=== PATIENT | female | born 1945 | race Caucasian/White ===

== ENCOUNTER 2016-09-19 13:42 | Day surgery (SDC) | payer MEDICARE, OTHER ==
[~2016-09-19] VITALS: Ht 157.5 cm; Wt 44.8 kg
[~2016-09-19 13:42] MED LIST: CALC-761 PO; HYDR25TA4 PO; Lactated Ringer's 1,000 ML IV ONE; Levofloxacin 500 mg/100 mL D5W IV ONE; MULT-1065 PO; POTASSIUM PHOS PO; TAMS0.4C98 PO
[2016-09-19] MEDS ORDERED: Propofol 10,000 mCg/mL 20 mL Inj ONE (13:43)
[2016-09-19] MEDS ORDERED: Ondansetron 2 mg/mL 2 mL Inj ONE (13:43)
[2016-09-19] MEDS ORDERED: fentaNYL-PF 50 mCg/mL 2 mL Inj ONE (13:43)
[2016-09-19 13:50] VITALS: BP 153/76; PULSE 80; RESP 16; O2SAT 98
[2016-09-19] MEDS ORDERED: Lactated Ringer's 1,000 ML IV ONE (13:50)
[2016-09-19] MEDS ORDERED: levoFLOXacin 500 mg/100 mL D5W Premix IV ONE (14:04)
[2016-09-19] MEDS ORDERED: NO HOME MEDICATIONS (14:26)
[2016-09-19] MEDS ORDERED: Iopamidol-300 50 mL Inj IV ONE (14:30)
[2016-09-19] MEDS ORDERED: Lactated Ringer's 500 ML IV PRN (14:44)
[2016-09-19] MEDS ORDERED: Lactated Ringer's 1,000 ML IV SCH (14:44)
--- NOTE | 2016-09-19 14:44 | PCM.HPANE ---
Patient Data Surgeon Admitting Provider: Attending Provider:Dunia Burnham MD Primary Care Physician:Neville Ocampo MD Other Provider:[facility] Reason for Visit Right Ureteral Stone Ht/WT & BMI Height (Feet): 5 Height (Inches): 2 Weight (Kilograms): 44.54 Body Mass Index 18.00 Allergies Coded Allergies: Penicillins (Verified Allergy, Severe, RASH, 09/19/16) Past Anesthesia History Anesthesia History: Denies:: Anesthesia Reactions, Malignant Hyperthermia Diabetes History Hx Diabetes?: No MRSA MRSA: No Medications Hypertension Medication: Yes (HCTZ) Reported Medications [No Home Medications] No Conflict Check 09/19/16 Discontinued Reported Medications [Potassium Phos #2] No Conflict Check1 Tab PO DAILY 305-700 09/14/16 Hydrochlorothiazide 25 Mg [id number] Mg PO DAILY 30 Days Ref 0 09/14/16 Calcium Citrate/Vitamin D3 (Citracal + D Maximum Caplet)1 Each Tablet1 Each PO DAILY 09/14/16 Multivits-Min/Iron/FA/Lutein (Centrum Silver Women Tablet)8 Mg Iron-400 Mcg-300 Mcg Tablet1 Each PO DAILY 09/14/16 Tamsulosin (Flomax)0.4 Mg Capsule0.4 Mg PO DAILY Ref 0 09/14/16 History History of ENT Problems?: No HEENT History: Denies:: Abnormal Airway Cataracts Difficult Intubation Dysphagia Glaucoma Hearing Problem Sinus Problem TMJ Denture Type: None Teeth Condition: Within Normal Limits Hx of Heart Problems?: Yes Cardiovascular History: Positive for:: Hypertension Denies:: Heart Murmur Hx of Respiratory Problem?: No Respiratory History: Denies:: Use of C-PAP Machine Hx Neurologic Problems?: No Hx of GI Problems?: Yes Other GI Pertinent History: C/OF ABD PAIN R/T KIDNEY STONE HX BOWEL OBSTRUCTION Hx of Problems?: Yes Genitourinary History: Positive for:: Kidney Stones (RT URETERAL STONE= CURRENT PROBLEM C/OF RT FLANK PAIN) Other Pertinent History: S/P CYSTO, RETROGRADE PYELOGRAM Female Hx: Denies:: Currently Skin History: Denies:: History Skin Disorders? Pressure Ulcers Hx Musculoskeletal Problems?: Yes Musculoskeletal History: Positive for:: Musculoskeletal Trauma (S/P WRIST RPR' S) Hx of Psycho/Social Problems?: No Hx Surgeries?: Yes (CYSTO/RETROGRADE,WRIST RPR'S,HYST) Hx Any Other Health Problems?: Yes Other History: Denies:: Cancer Endocrine Disease Hospitalization Thyroid Disease Hx Diabetes: No Have You Smoked inLast 12 mo: No Stop/Bang S-Snoring: Do You Snore Loudly: No T-Tired: feel tired, fatigued: Yes O-Obsered: Observed not breath: No P-Blood Pressure: treated: Yes B- Body Mass Index > 35 kg/m2: No A- Age over 50: Yes N- Neck Large Circumference: No G- Gender Male: No FLIP Total Score: 3 Risk Assessment Category Category 1A: Patient has history of documented sleep apnea, and HAS NOT received any narcotic, sedative or anesthesia administration during this stay. Category 1B: Patient has history of documented sleep apnea, and HAS received any narcotic , sedative or anesthesia administration during this stay Category 2: Patient has SUSPECTED Obstructive Sleep Apnea, and HAS received any narcotic , sedative or anesthesia administration during this stay. Category 3: Patient has SUSPECTED Obstructive Sleep Apnea and HAS NOT received narcotic, sedative or anesthesia administration during this stay. Category 4: Outpatient in Procedural Areas with known sleep apnea or who screen positive for High Risk via the STOP/BANG questionnaire. Exam Exam General Appearance: Alert, Oriented X3, Cooperative, No Acute Distress HEENT/AIRWAY: MP 2 Lungs: Clear to Auscultation Heart: Exam Unremarkable Plan Impression Patient chart reviewed, patient interviewed and anesthestic plan with risks, benefits, and alternatives discussed, and informed consent obtained. ASA Physical Status: ASA1 Normal Healthy Anesthetic Plan: GA Bene/Risks/Altern/Consents: Yes HP Complete Prior to Induction: Yes Rajendra Cordova MD Sep 19, 2016 07:50
[2016-09-19] MEDS ORDERED: Dexamethasone 4 mg/mL Inj IVPUSH PRN (14:45)
[2016-09-19] MEDS ORDERED: MetoCLOpramide 5 mg/mL 2 mL Inj IVPUSH PRN (14:45)
[2016-09-19] MEDS ORDERED: Ondansetron 2 mg/mL 2 mL Inj IVPUSH PRN (14:45)
[2016-09-19] MEDS ORDERED: fentaNYL-PF 50 mCg/mL 2 mL Inj IVPUSH PRN (14:45)
[2016-09-19] MEDS ORDERED: EPHEDrine Sulfate 50 mg/mL Inj IVPUSH PRN (14:45)
[2016-09-19] MEDS ORDERED: Phenylephrine 10,000 mCg/mL Inj IVPUSH PRN (14:45)
[2016-09-19] MEDS ORDERED: HYDROmorphone 1 mg/mL Inj IVPUSH PRN (14:45)
[2016-09-19 15:02] VITALS: BP 144/94; PULSE 76; RESP 11; O2SAT 98
[2016-09-19 15:05] VITALS: BP 142/80; PULSE 70; RESP 12; O2SAT 98
[2016-09-19 15:10] VITALS: BP 140/80; PULSE 68; RESP 12; O2SAT 98
[2016-09-19] MEDS ORDERED: HYDROcodone-APAP 5-325 mg Tablet PO PRN (15:15)
[2016-09-19 15:25] VITALS: BP 150/87; PULSE 75; RESP 15; O2SAT 98
[2016-09-19 16:32] VITALS: BP 156/75; PULSE 88; RESP 16; O2SAT 100
--- NOTE | 2016-09-19 16:37 | DRSVH ---
PROCEDURE: X-RAY RETROGRADE UROGRAPHY INDICATIONS: CYSTO RIGHT STENT PLACEMENT TECHNIQUE: 2 intra-operative images acquired by the Urology service. COMPARISON: None. FINDINGS: Intraoperative images demonstrate apparent right hydronephrosis and hydroureter with urete rovesicular stent placement. IMPRESSION: Ureterovesicular stent placement. Please see operative report for further evaluation. Dictated by: Karen Mcgill M.D. on 09/19/2016 at 16:35 Approved by: Karen Mcgill M.D. on 09/19/2016 at 16:35
--- NOTE | 2016-09-20 01:14 | OP ---
[address] [address] OPERATIVE REPORT PATIENT: ISIS ORTA : 1945 MR#: [id number] ADMIT: 09/19/2016 JOB ID: [id number] CORRECTED REPORT: DATE OF SURGERY: 09/19/2016 PREOPERATIVE DIAGNOSIS(ES): Right urolithiasis. POSTOPERATIVE DIAGNOSIS(ES): Right urolithiasis. PROCEDURE PERFORMED: 1. Cystoscopy. 2. Right retrograde pyelogram. 3. Right ureteroscopy. 4. Right ureteral stent placement. SURGEON: Dunia Burnham MD [employer]: None. FINDINGS: 1. Somewhat tortuous right ureter. 2. Mild hydronephrosis. ANESTHESIA: General. ESTIMATED BLOOD LOSS: Less than 2 mL. DRAINS: 6 x 22 right double-J ureteral stent. SPECIMENS: None. COMPLICATIONS: None. CONDITION: Stable. INDICATION FOR PROCEDURE: The patient is a 71-year-old woman with a right proximal ureteral stone as well as several tiny punctate nephroliths. She now presents for the aforementioned procedure. DESCRIPTION OF PROCEDURE: After informed consent was obtained, the patient was taken to the operating room. A time-out was performed, identifying correct patient, surgical site, procedure. General anesthesia was then induced. She was placed in the lithotomy position and all pressure points were identified and appropriately padded. Her genitals were then prepped and draped in usual sterile fashion. A 22-Z[place]ian rigid cystoscope was applied to the patient's urethra and advanced into the bladder. The bladder was drained. The right ureteral orifice was cannulated with a 5-Z[place]ian open-ended Pollack catheter. The findings were aforementioned. Two Sensor tip wires were then advanced in the renal pelvis in succession as seen under fluoroscopy. Semi-rigid ureteroscopy then commenced. The ureteroscope could not be advanced beyond the distal aspect of the ureter. The ureteroscope was then removed under direct vision. One of the Sensor tip wires was backloaded into a 12/14 access sheath, 28 cm long. It could not be navigated any further than the distal ureter. The access sheath was removed and the remaining wire then backloaded in the cystoscope and a 6 x 22 double-J ureteral stent was loaded over it and into the renal pelvis as seen under fluoroscopy. The wire then removed, leaving a nice coil in the patient's bladder as seen under direct vision. The bladder was then drained. The patient was then reversed from general anesthesia and taken to PACU in good and stable condition. Corrected by CY 09/27/16 at 11:47am DOS.
== END 2016-09-19 23:59 | disposition home or self-care (01) ==
LOC: SAS 13:42 → EDSEX 15:15 → SAS 23:59
PROVIDERS: ATTEND Urology
DX: N20.1 Calculus of ureter (principal); I10 Essential (primary) hypertension; Z90.710 Acquired absence of both cervix and uterus
CPT/HCPCS: 52332; 74420; C2617; J1885; J2250; J2405; J3010; J7120; Q9967

== ENCOUNTER → 2016-10-05 | Day surgery (SDC) | payer MEDICARE, OTHER ==
[~2016-10-05] VITALS: Ht 157.5 cm; Wt 44.1 kg
[2016-10-05] VITALS (9 sets, daily range): BP systolic 113–159; BP diastolic 63–83; PULSE 67–84; RESP 14–18; O2SAT 99–100
[~2016-10-05] MED LIST changes: +0.9% Sodium Chloride 200 ML ONE; +Bupivacaine Liposome 1.3% 20 mL Inj ONE; -CALC-761 PO; +Dexamethasone 4 mg/mL Inj IVPUSH PRN; +Dexamethasone 4 mg/mL Inj ONE; +EPHEDrine Sulfate 50 mg/mL Inj IVPUSH PRN; -HYDR25TA4 PO; +HYDROcodone-APAP 5-325 mg Tablet PO PRN; +HYDROmorphone 1 mg/mL Inj IVPUSH PRN; +Iopamidol-300 50 mL Inj IV ONE; -Lactated Ringer's 1,000 ML IV ONE; +Lactated Ringer's 1,000 ML IV SCH; +Lactated Ringer's 500 ML IV PRN; -MULT-1065 PO; +MetoCLOpramide 5 mg/mL 2 mL Inj IVPUSH PRN; +MetoCLOpramide 5 mg/mL 2 mL Inj ONE; +NO HOME MEDICATIONS; +Ondansetron 2 mg/mL 2 mL Inj IVPUSH PRN; +Ondansetron 2 mg/mL 2 mL Inj ONE; -POTASSIUM PHOS PO; +Phenylephrine 10,000 mCg/mL Inj IVPUSH PRN; +Propofol 10,000 mCg/mL 20 mL Inj ONE; -TAMS0.4C98 PO; +Tranexamic Acid 100 mg/mL 10 mL Inj ONE; +fentaNYL-PF 50 mCg/mL 2 mL Inj IVPUSH PRN; +levoFLOXacin 500 mg/100 mL D5W Premix IV ONE
[2016-10-05] MEDS: Lactated Ringer's 1,000 ML IV SCH ×2 (11:35→12:12)
--- NOTE | 2016-10-05 11:57 | PCM.HPANE ---
Patient Data Surgeon Admitting Provider: Attending Provider:Dunia Burnham MD Primary Care Physician:Neville Ocampo MD Other Provider:[facility] Reason for Visit Right Ureteral Stone Ht/WT & BMI Height (Feet): 5 Height (Inches): 2.00 Weight (Kilograms): 44.100 Body Mass Index 17.00 Allergies Coded Allergies: Penicillins (Verified Allergy, Severe, RASH, 09/29/16) Past Anesthesia History Anesthesia History: Denies:: Abnormal Airway, Anesthesia Reactions, Difficult Intubation, Fam Anesthesia Reaction, Fam Malignant Hypertherm, Malignant Hyperthermia Diabetes History Hx Diabetes?: No MRSA MRSA: No Medications Home Meds Incl Beta Vivian: No Reported Medications [No Home Medications] No Conflict Check 09/19/16 History History of ENT Problems?: No HEENT History: Denies:: Abnormal Airway Cataracts Difficult Intubation Dysphagia Glaucoma Hearing Problem Sinus Problem TMJ Denture Type: None Teeth Condition: Within Normal Limits Hx of Heart Problems?: Yes Cardiovascular History: Denies:: Heart Murmur Hypertension Hx of Respiratory Problem?: No Respiratory History: Denies:: Use of C-PAP Machine Hx Neurologic Problems?: No Hx of GI Problems?: No Hx of Problems?: Yes Genitourinary History: Positive for:: Kidney Stones (RT URETERAL STONE= CURRENT PROBLEM C/OF RT FLANK PAIN) Denies:: HX of Hemodialysis Urinary Tract Infection HX of Peritoneal Dialysis: No Female Hx: Positive for:: Problems with Breasts? Denies:: Currently Skin History: Denies:: History Skin Disorders? Pressure Ulcers Hx Musculoskeletal Problems?: Yes Musculoskeletal History: Positive for:: Musculoskeletal Trauma (S/P Carpal tunnel bilateral RPR'S) Denies:: Back Injury Degenerative Joint Fibromyalgia Joint Replacement Myasthenia Gravis Osteoarthritis Rheumatoid Arthritis Systemic Lupus Hx of Psycho/Social Problems?: No Hx Surgeries?: Yes (CYSTO/RETROGRADE,WRIST RPR'S,HYST) Hx Any Other Health Problems?: Yes Other History: Positive for:: Hospitalization Denies:: Cancer Endocrine Disease Thyroid Disease History Blood Transfusions: Positive for:: Accept Blood Products? Denies:: Blood Transfusions Hx Diabetes: No Hx Alcohol Use: Yes (2-3 glasses of wine a week)Hx Substance Use: No Smoking Status: Never Smoker Have You Smoked inLast 12 mo: No Stop/Bang Treated for Sleep Apnea?: No Do You Have a CPAP Machine?: No S-Snoring: Do You Snore Loudly: No T-Tired: feel tired, fatigued: No O-Obsered: Observed not breath: No P-Blood Pressure: treated: No B- Body Mass Index > 35 kg/m2: No A- Age over 50: Yes N- Neck Large Circumference: No G- Gender Male: No FLIP Total Score: 1 FLIP Risk Assessment: Low Risk, <3 Yes Risk Assessment Category Category 1A: Patient has history of documented sleep apnea, and HAS NOT received any narcotic, sedative or anesthesia administration during this stay. Category 1B: Patient has history of documented sleep apnea, and HAS received any narcotic , sedative or anesthesia administration during this stay Category 2: Patient has SUSPECTED Obstructive Sleep Apnea, and HAS received any narcotic , sedative or anesthesia administration during this stay. Category 3: Patient has SUSPECTED Obstructive Sleep Apnea and HAS NOT received narcotic, sedative or anesthesia administration during this stay. Category 4: Outpatient in Procedural Areas with known sleep apnea or who screen positive for High Risk via the STOP/BANG questionnaire. Exam Exam Vital Signs Vital Signs Date Time Temp Pulse Resp B/P Pulse Ox O2 Delivery O2 Flow Rate FiO2 10/05/16 11:11 36.7 80 18 159/83 100 Room Air General Appearance: Oriented X3 HEENT/AIRWAY: MP 1 Lungs: Normal Air Movement Heart: Regular Rate/Rhythm Meds/Labs/Diagnostics Admission Meds Current Medications Lactated Ringer's (Lr) 1,000 ml @ 120 mls/hr [id number] IV Last administered on t 11:35; Start 10/05/16 at 05:00; Stop 10/05/16 at 13:19 Plan Impression Patient chart reviewed, patient interviewed and anesthestic plan with risks, benefits, and alternatives discussed, and informed consent obtained. ASA Physical Status: ASA1 Normal Healthy Anesthetic Plan: GA Bene/Risks/Altern/Consents: Yes HP Complete Prior to Induction: Yes Aries Cheung MD Oct 05, 2016 11:57
--- NOTE | 2016-10-05 13:57 | DRSVH ---
PROCEDURE: X-RAY RETROGRADE UROGRAPHY INDICATIONS: C-ARM ASSISTED STONE REMOVAL TECHNIQUE: 3 intra-operative images acquired by the Urology service. COMPARISON: [facility], CR, XR RETROGRADE UROGRAPHY, 09/19/2016, 14:51. FINDINGS: Exam limited to 3 submitted images. Within these limits, opacified portions of the distal right ureter demonstrates several small intraluminal filling defects likely related to retained ston es in the ureter is tortuous at the level of the mid pelvis. Ureteral stent was placed. IMPRESSION: Limited exam demonstrates several right ureteral intraluminal filling defect suspicious for retained stones. Correlate with real time examination. Ureteral stent placed. Dictated by: Alec MONTES Interpreted: Daniele Woodson MD on 10/05/2016 at 13:54 Transcribed by: DAIJA on 10/05/2016 at 13:55 Approved by: Daniele Woodson M.D. on 10/05/2016 at 15:34
--- NOTE | 2016-10-05 13:57 | PCM.ANEP1 ---
Post Anesthesia PACU Phase 1 Assessment Vital Signs Vital Signs Date Time Temp Pulse Resp B/P Pulse Ox O2 Delivery O2 Flow Rate FiO2 10/05/16 13:46 70 16 140/83 100 Room Air 10/05/16 13:40 36.4 71 14 123/79 100 Room Air 10/05/16 13:35 70 14 129/70 100 Room Air 10/05/16 13:30 70 15 127/75 100 Room Air 10/05/16 13:25 67 14 127/71 100 Simple Mask 8 10/05/16 13:20 75 16 113/68 99 Simple Mask 8 10/05/16 13:18 36.5 75 16 119/63 99 Simple Mask 8 10/05/16 11:11 36.7 80 18 159/83 100 Room Air Anesthetic Administered: GA Level of Alertness: Awake, talking Pain: No Nausea or Vomiting: No CV Function & Hydration Stable: Yes Airway Device: Lungs: Normal Air Movement PACU Phase 2 Assessment Patient Instructions Provided: N/A Aries Cheung MD Oct 05, 2016 13:57
--- NOTE | 2016-10-05 14:30 | OP ---
[address] [address] OPERATIVE REPORT PATIENT: ISIS ORTA : 1945 MR#: [id number] ADMIT: 10/05/2016 JOB ID: [id number] DATE OF SURGERY: 10/05/2016 PREOPERATIVE DIAGNOSIS(ES): 1. Right urolithiasis. 2. Right ureterolithiasis. 3. Right ureteral narrowing. POSTOPERATIVE DIAGNOSIS(ES): PROCEDURE PERFORMED: 1. Cystoscopy and right stent removal. 2. Right retrograde pyelogram. 3. Right ureteral dilation. 4. Right ureteroscopy and laser lithotripsy. 5. Right ureteral stent placement. SURGEON: Dunia Burnham MD [employer]: None. FINDINGS: 1. Narrowing of the distal right ureter. 2. Right proximal ureteral stone. 3. Mild right hydronephrosis. ANESTHESIA: General. ESTIMATED BLOOD LOSS: Less than 5 mL. DRAINS: A 6 x 22 right double-J ureteral stent. SPECIMENS: None. COMPLICATIONS: None. CONDITION: Stable. INDICATION FOR PROCEDURE: The patient is a 71-year-old woman with a right ureteral stone. She had undergone right ureteral stent placement on September 19, 2016. She now presents for definitive management of her stone. DESCRIPTION OF PROCEDURE: After informed consent was obtained, the patient was taken to the operating room. A time-out was performed identifying correct patient, surgical site, and procedure. General anesthesia was smoothly induced. She was placed in the lithotomy position and all pressure points were identified and appropriately padded. Her genitals were then prepped and draped in the usual sterile fashion. A 22-[place] rigid cystoscope was applied to the patient's urethra and advanced into the bladder. The bladder was drained. Stent graspers were used to manipulate the stent down to the urethral meatus. It was cannulated with a Sensor tip wire, which was advanced to the renal pelvis. The stent was then backloaded off of the wire and examined. It was ensured that it was removed in its entirety and discarded. A second Sensor tip wire was navigated to the renal pelvis as seen under fluoroscopy. It was attempted to load a 12/14 access sheath, 28 cm long, over one of the wires though there was resistance at the distal ureter. A semi-rigid ureteroscope was then used to navigate the ureteral orifice to the distal ureter. There was found to be a narrow caliber ureteral lumen there. A retrograde pyelogram was performed. This verified demonstrated the narrowing. The ureteroscope was then removed. A 10-[place] dual-lumen catheter was loaded over one of the wires and advanced into the mid ureter. It was allowed to sit for a moment. It was then removed. It was attempted to load a flexible ureteroscope over one of the wires, but it simply could not be navigated beyond the distal ureter. A 12/14 access sheath, 28 cm long, was then loaded over one of the wires to be advanced beyond the point of previous narrowing. It could not be navigated beyond that, as the remainder of the ureter was somewhat mildly tortuous. The flexible ureteroscope was then navigated beyond the access sheath into the proximal ureter where there was found a stone. A 273 micron laser fiber wire was used to break the stone into little pieces. The stone was quite porous and broke up into tiny bits of debris that were not basketable. The rest of the kidney was then explored and there were no further stones found. The ureteroscope was then removed under direct vision. The Sensor tip wire was then backloaded into the cystoscope and a 6 x 22 double-J ureteral stent was navigated to the renal pelvis as seen under fluoroscopy. The wire then removed, leaving a nice coil in the patient's bladder as seen under direct vision. The patient was then reversed from general anesthesia and taken to the PACU in good and stable condition. DOUGLAS
== END | disposition home or self-care (01) ==
LOC: SAS 10:49
PROVIDERS: ATTEND Urology
DX: N20.1 Calculus of ureter (principal); N13.1 Hydronephrosis with ureteral stricture, not elsewhere classified
CPT/HCPCS: 52356; 74420; C2617; J1100; J2405; J2765; J7120; Q9967